=== PATIENT | male | born 1975 | race Caucasian/White ===

== ENCOUNTER 2017-08-05 21:08 | Emergency (ER) | payer OTHER ==
[~2017-08-05] VITALS: Ht 180.3 cm; Wt 109.2 kg
[2017-08-05] MEDS ORDERED: CLEOCIN300 MG PO (21:41)
[2017-08-05] MEDS ORDERED: CLEOCIN150 MG PO (21:41)
[2017-08-05] MEDS ORDERED: MOTRIN800 MG PO (21:41)
[2017-08-05 22:09] VITALS: BP 139/84
== END 2017-08-05 22:10 | disposition home or self-care (01) ==
LOC: EME 21:08
DX: K02.9 Dental caries, unspecified (principal); F17.210 Nicotine dependence, cigarettes, uncomplicated
CPT/HCPCS: 99281; 99283